=== PATIENT | male | born 1960 | race Caucasian/White ===

== ENCOUNTER 2022-06-07 18:57 | Emergency (ER) | payer OTHER ==
[2022-06-07] MEDS ORDERED: Tetracaine 0.5% PF 4 ML BOT ONE (19:15)
[2022-06-07] MEDS ORDERED: Fluorescein Opthalmic Strip ONE (19:15)
[2022-06-07] MEDS ORDERED: Erythromycin Base 0.5% Ophth Oint 3.5 gm Tube ONE (19:58)
== END 2022-06-07 20:09 | disposition home or self-care (01) ==
LOC: BURERS 18:57
DX: T15.92XA Foreign body on external eye, part unspecified, left eye, initial encounter (principal); J44.9 Chronic obstructive pulmonary disease, unspecified; I10 Essential (primary) hypertension; E78.00 Pure hypercholesterolemia, unspecified; F17.210 Nicotine dependence, cigarettes, uncomplicated; Z79.899 Other long term (current) drug therapy
CPT/HCPCS: 99283